=== PATIENT | female | born 2000 | race African-American/Black ===

== ENCOUNTER 2025-02-08 22:53 | Emergency (ER) | payer OTHER, SELFPAY ==
[2025-02-08 23:06] VITALS: BP 123/80; PULSE 51; RESP 16; TEMP 36.6; O2SAT 97; BMI 25.9
[2025-02-09 00:31] LABS: Ictotest Urine Negative (Negative)
--- NOTE | 2025-02-09 00:38 | ED_ITS ---
HPI - Female Genitourinary General Chief complaint: Abdominal Pain Stated complaint: abd pain, passing blood clots Time Seen by Provider: 02/08/25 23:43 Source: patient Mode of arrival: Ambulatory History of Present Illness HPI Narrative: 24-year-old female presents with heavy menstrual bleeding today after having her IUD removed 3 days ago. She was previously on Mirena she has gone through more than 3 pads today. Patient was already seen by urgent care and scheduled for ultrasound this coming Wednesday but she passed a few clots and got concerned and came in to be evaluated. Other than what is stated 14 point review of system is negative Related Data Previous Rx's Medication Instructions Recorded medroxyprogesterone 10 mg tablet 10 mg PO DAILY #7 tabs 02/09/25 (Provera) Allergies Allergy/AdvReac Type Severity Reaction Status Date / Time sumatriptan [From Imitrex] Allergy Anaphylaxis Verified 02/08/25 23:20 Review of Systems Review of Systems ROS Unobtainable: All systems reviewed & are unremarkable except as noted in HPI and below Exam Narrative Exam Narrative: GENERAL: [24] year old patient appears stated age. Well-developed patient, in mild distress. HEAD: Atraumatic. Normocephalic. EYES: Pupils equal round and reactive. Extraocular motions intact. No scleral icterus. No injection or drainage. GASTROINTESTINAL: Abdomen soft, non-tender, nondistended. : Cervical os slight opening, blood in canal 2 scopettes used. No cmt on exam. EXTREMITIES: No edema or joint tenderness. BACK: Nontender without deformity or crepitance. No flank tenderness. NEURO: AOx3. SKIN: No rash or erythema of visible areas Initial Vital Signs Initial Vital Signs: Vital Signs Temperature 97.9 F 02/08/25 23:06 Pulse Rate 51 L 02/08/25 23:06 Respiratory Rate 16 02/08/25 23:06 Blood Pressure 123/80 02/08/25 23:06 Pulse Oximetry 97 02/08/25 23:06 Oxygen Delivery Method Room Air 02/08/25 23:06 Course Orders Ordered: ED Orders 02/09/25 00:10 Ictotest Urine Stat Urine Microscopic Stat Medroxyprogesterone Acetate (Medroxyprogesterone Acetate 10 Mg Tablet) 10 mg PO NOW ONE Stop: 02/09/25 00:38 Vital Signs Vital signs: Vital Signs - 8 hr 02/08/25 23:06 Temperature 97.9 F Pulse Rate 51 L Respiratory Rate 16 Blood Pressure 123/80 Pulse Oximetry 97 Oxygen Delivery Method Room Air MDM - Female Genitourinary Lab Data Labs: Lab Results 02/09/25 Range/Units 00:10 Ur Bilirubin Confirm Negative (Negative) Point of Care Testing Test Results Negative Urine Dip Bedside Urine Glucose Negative Bedside Urine Bilirubin + 1 Bedside Urine Ketone - Negative Urine Specific [place] 1.015 Bedside Urine Occult Blood +++ Bedside Urine pH 7.0 Bedside Urine Protein +/- 15 Bedside Urine Urobilinogen - Negative Bedside Urine Nitrite - Negative Bedside Urine Leukocytes - Negative Esterase MDM Narrative Medical decision making narrative: Patient given Provera 1st dose here and prescription on discharge she will follow up for a vaginal ultrasound on Wednesday as outpatient. Follow up with PCP and or OBGYN following ultrasound. Differential diagnosis includes dysfunctional uterine bleed, anemia, pid, STd, UTI. Discharge Plan Departure Patient Disposition: Home Clinical Impression: DUB (dysfunctional uterine bleeding) Instructions: DI for Abnormal Uterine Bleeding Activity Restrictions/Additional Instructions: RETURN WITH NEW OR WORSENING SYMPTOMS. FOLLOW UP FOR A VAGINAL ULTRASOUND ON WEDNESDAY AND THEN FOLLOW UP WITH PCP AND OR OBGYN. TAKE YOUR MEDICINES DIRECTED Prescriptions: New medroxyprogesterone [Provera] 10 mg tablet 10 mg PO DAILY Qty: 7 0RF Referrals: ProviderMimi [Primary Care Provider] - Stand Alone Forms: Patient Portal/API/Survey
[2025-02-09 00:39] LABS: Bacteria Urine Many (>30); RBC Urine 1-5/HPF (0-5/HPF); Urine Volume 10mL (spun)
[2025-02-09 00:43] LABS: Mucus Urine 3+ (Negative); Squamous Epithelial Cell Urine 10-30 /HPF (0-5/HPF); WBC Urine 0-1/HPF (0-5/HPF)
[2025-02-09 00:44] LABS: Culture Indicated Urine Cult Not Indicated
[2025-02-09] MEDS: MEDROXYPROGESTERONE ACETATE 10 MG TABLET PO (00:48)
[2025-02-09 00:53] VITALS: BP 122/78; PULSE 55; RESP 18; O2SAT 99
== END 2025-02-09 00:54 | disposition home or self-care (01) ==
PROVIDERS: Emergency Provider Family Medicine
DX: N93.8 Other specified abnormal uterine and vaginal bleeding (principal)
CPT/HCPCS: 81003; 81015; 81025; 99283